=== PATIENT | male | born 1965 | race Caucasian/White ===

== ENCOUNTER 2018-07-12 16:44 | Observation (INO) | payer OTHER ==
[~2018-07-12] VITALS: Ht 180.3 cm; Wt 115.7 kg
[2018-07-12 17:27] LABS: BASOPHILS ABSOLUTE AUTO 0.02 K/mm3 (0.00-0.23); BASOPHILS PERCENT AUTO 0 % (0-2); EOSINOPHILS ABSOLUTE AUTO 0.08 K/mm3 (0.00-0.68); EOSINOPHILS PERCENT AUTO 1 % (0-6); Hematocrit 40.4 % (37.0-53.0); Hemoglobin 13.6 g/dL (13.5-17.5); IMMATURE GRAN ABSOLUTE AUTO 0.02 K/mm3 (0.00-0.10); IMMATURE GRAN PERCENT AUTO 0 % (0-1); LYMPHOCYTES ABSOLUTE AUTO 1.63 K/mm3 (0.84-5.20); LYMPHOCYTES PERCENT AUTO 20 % (21-46); MONOCYTES ABSOLUTE AUTO 0.37 K/mm3 (0.16-1.47); MONOCYTES PERCENT AUTO 5 % (4-13); Mean Corpuscular HGB 31.5 pg (26.0-34.0); Mean Corpuscular HGB Conc 33.7 g/dL (31.5-36.5); Mean Corpuscular Volume 94 fL (80-100); Mean Platelet Volume 10.4 fL (9.1-12.4); NEUTROPHILS ABSOLUTE AUTO 5.92 K/mm3 (1.96-9.15); NEUTROPHILS PERCENT AUTO 74 % (41-73); Platelet Count 253 K/mm3 (150-400); RDW Coefficient Variation 13.6 % (11.7-14.2); RDW Standard Deviation 46.8 fL (35.1-46.3); Red Blood Cell Count 4.32 M/mm3 (4.30-5.90); White Blood Cell Count 8.04 K/mm3 (4.00-11.30)
[2018-07-12 17:49] LABS: Albumin, Blood 4.7 g/dL (3.4-5.0); Albumin/Globulin Ratio 1.5 (0.8-1.8); Bilirubin, Total 0.6 mg/dL (0.1-1.0); Bun/Creatinine Ratio 15.9 (12.0-20.0); Calcium, Blood 8.8 mg/dL (8.5-10.1); Creatinine, Blood 1.76 mg/dL (0.60-1.20); Globulin, Blood 3.1 g/dL (2.2-4.0); Total Protein, Blood 7.8 g/dL (6.4-8.2)
[2018-07-12 20:49] LABS: Source, Urine Clean Catch
[2018-07-12 20:53] LABS: Appearance, Urine Clear (Clear); Bilirubin, Urine Neg (Neg); Blood, Urine 3+ (Neg); Color, Urine Yellow (P-Yellow); Glucose Qualitative, Urine Neg (Neg); Ketones, Urine 1+ (Neg); Leukocyte Esterase, Urine Neg (Neg); Nitrite, Urine Neg (Neg); Protein, Urine 3+ (Neg); Specific Gravity, Urine 1.025 (1.003-1.022); Urobilinogen, Urine NORM (Normal)
[2018-07-12 20:59] LABS: White Blood Cells, Urine 0-2 /hpf (0-5)
[2018-07-12 21:00] LABS: Bacteria Not Seen /hpf; Squamous Epithelial Cells Not Seen /hpf (Few)
[2018-07-12] MEDS ORDERED: LISI20 PO (21:58)
[2018-07-12] MEDS ORDERED: **INCOMPLETE MED REC (22:48)
[2018-07-12] MEDS ORDERED: ZESTRIL40 MG PO (22:51)
[2018-07-12] MEDS ORDERED: PRED1 PO (22:52)
[2018-07-12] MEDS ORDERED: ZOLP10 PO (22:52)
[2018-07-13 05:27] LABS: Creatinine, Blood 1.93 mg/dL (0.60-1.20)
== END 2018-07-13 13:31 | disposition home or self-care (01) ==
LOC: ER 16:44 → MEDS 16:45
PROVIDERS: Nurse Practitioner Acute Care; Physician Assistant; ADMIT Internal Medicine
DX: N13.2 Hydronephrosis with renal and ureteral calculous obstruction (principal); N17.9 Acute kidney failure, unspecified; G56.00 Carpal tunnel syndrome, unspecified upper limb; I10 Essential (primary) hypertension; E78.5 Hyperlipidemia, unspecified; Z79.899 Other long term (current) drug therapy; Z79.52 Long term (current) use of systemic steroids
CPT/HCPCS: 36415; 74176; 80048; 80053; 81001; 83690; 85025; 96361; 96374; 96375; 99285-25; G0378; J1170; J1885; J2405; J7030

== ENCOUNTER 2020-05-14 07:55 | Day surgery (SDC) | payer BC ==
[~2020-05-14] VITALS: Ht 180.3 cm; Wt 111.8 kg
[~2020-05-14 07:55] MED LIST: **INCOMPLETE MED REC; FENO145 PO; LISI20 PO; OMEP20ER PO; PRED1 PO; ZESTRIL40 MG PO; ZOLP10 PO
--- NOTE | 2020-05-14 08:49 | NUR ---
05/14/20 0849 Lyndsay Justin CALL LIGHT WITHIN REACH
== END 2020-05-14 09:50 | disposition home or self-care (01) ==
LOC: ORSCSDS 07:55
PROVIDERS: Surgery
PROC: 0DJD8ZZ Inspection of Lower Intestinal Tract, Via Natural or Artificial Opening Endoscopic (ICD-10-PCS; principal; 2020-05-14 09:00)
DX: Z12.11 Encounter for screening for malignant neoplasm of colon (principal); Z86.010 Personal history of colon polyps; I10 Essential (primary) hypertension; E78.5 Hyperlipidemia, unspecified; Z79.899 Other long term (current) drug therapy
CPT/HCPCS: J0330; J0461; J2250; J2405; J2704; J7120

== ENCOUNTER → 2021-06-23 | Outpatient (CLI) | payer BC | END | disposition home or self-care (01) | LOC: LAB SHORT 11:03 | DX: C44.311 Basal cell carcinoma of skin of nose (principal) | CPT/HCPCS: 88305 ==

== ENCOUNTER → 2023-06-01 | Outpatient (CLI) | payer BC | LOC: LAB 08:33 → LAB SHORT 08:33 | DX: C76.0 Malignant neoplasm of head, face and neck (principal) | CPT/HCPCS: 88305; 88341; 88342 ==

== ENCOUNTER 2023-09-02 06:12 | Day surgery (SDC) | payer BC ==
[2023-09-02] VITALS (14 sets, daily range): BP systolic 97–156; BP diastolic 62–98
[~2023-09-02] VITALS: Ht 180.3 cm; Wt 98.7 kg
[~2023-09-02 06:12] MED LIST changes: +CALC.25 PO; +Calcium Carbon500 MG PO; +LEVSOD100 PO; +NEBI10 PO; +TAMS.4ER PO; +Vitamin D1000 UNI1 PO
[2023-09-02] MEDS ORDERED: CeFAZolin Sodium 2,000 MG in NS 100 ML IV SCH (06:15)
[2023-09-02] MEDS ORDERED: Lactated Ringer's 1,000 ML IV SCH ×2 (06:15→09:55)
[2023-09-02] MEDS ORDERED: MELATONIN5 M1 PO (06:28)
--- NOTE | 2023-09-02 06:42 | NUR ---
Ambulatory in Day Surgery Pre-Op teaching done. Pt verbalizes understanding. History, Chart, Medications and Allergies reviewed before start of procedure.
[2023-09-02] MEDS ORDERED: propofoL 20 ML IV ONE ×2 (06:57→08:04)
[2023-09-02] MEDS ORDERED: Lidocaine HCl 4% 5 ML SDA ONE (07:25)
[2023-09-02] MEDS ORDERED: Glycopyrrolate 0.2 MG/ML 5ML VIAL ONE (07:34)
[2023-09-02] MEDS ORDERED: propofoL 40 ML IV ONE (07:44)
--- NOTE | 2023-09-02 08:39 | NUR ---
09/02/23 0839 Jaron Duenas PT RECIEVED 4% LIDO ORAL SPRAY TO GARGLE PER DR. EVANS WELL GLYCOPYROLATE FOR INCREASED SECRETIONS. [address] CUADRA AND DR. EVANS. SEE MD DICTATION AND ANESTHESIA RECORDS
--- NOTE | 2023-09-02 08:42 | NUR ---
DR. CUADRA SPOKE WITH PT REGARDING ATTEMPTED PEG TUBE PLACEMENT. DR. CUADRA IMFORMED PT THAT DR. EDMONDSON WILL PLACE PEG TUBE TODAY. CONTINUE TO MONITOR PT UNTIL DC FROM SURGERY.
--- NOTE | 2023-09-02 09:49 | NUR ---
DR CUADRA CAME BY TO SEE PATIENT. WILL ADMIT AN EXTENDED STAY FOR PEG TUBE PLACEMENT DONE THIS LATE AFTERNOON. VSS. AWAIT FOR ROOM ASSISGNMENT.
[2023-09-02] MEDS ORDERED: Acetaminophen 325 MG TABLET PO PRN (09:55)
[2023-09-02] MEDS ORDERED: LORazepam 2 MG/ML 1ML Injection IV PRN (10:05)
[2023-09-02] MEDS ORDERED: FentaNYL Citrate 50 MCG/ML 2 ML Injection IV PRN (10:05)
[2023-09-02] MEDS ORDERED: LORazepam 2 MG/ML 1ML Injection ONE (10:16)
--- NOTE | 2023-09-02 10:22 | NUR ---
MEDICATED FOR PAIN AND ANXIETY PER ORDERS. RECIEVED ROOM ASSIGNMENT TO 210. WILL CALL AND GIVE REPORT.
--- NOTE | 2023-09-02 10:39 | NUR ---
REPORT CALLED TO Nolberto FRANKLIN RN. TRANSFER PT VIA [facility] TO ROOM 210.
--- NOTE | 2023-09-02 11:19 | NUR ---
PT ARRIVED TO THE ROOM AT APPROXIMATELY 1055. PT IS ALERT AND ORIENTED. HE WAS ABLE TO TRANSFER FROM THE GURNEY TO THE BED INDEPENDENTLY. CALL LIGHT PLACED WITHIN REACH, PT EDUCATED TO USE. FAMILY AT THE BEDSIDE.
--- NOTE | 2023-09-02 11:40 | NUR ---
Patient is lying in bed and alert. Spouse, Ngoc is bedside. They tell me about the patient's medical history with cancer, the current medical situation and the plans for a procedure soon (then d/c home). We talk about the mental, emotional and spiritual parts of the henry while going through chemotherapy and radiation and ways to frame the events and ways to maintain sandra and keep hope alive. I normalize their experience and provide therapeutic listening, anxiety containment, theological insights and prayer. Both the patient and Ngoc showed signs of increased hope. I remain available.
[2023-09-02] MEDS ORDERED: Lidocaine 2% Jelly Uro-Jet ONE (14:59)
--- NOTE | 2023-09-02 15:16 | NUR ---
PT TAKEN FOR CT GUIDED PLACEMENT OF J-TUBE.
[2023-09-02] MEDS ORDERED: Acetaminophen 160MG / 5ML 10.15 UDC PO PRN (17:35)
--- NOTE | 2023-09-02 20:18 | NUR ---
PT PROVIDED WITH WRITTEN AND VERBAL DISCHARGE INSTRUCTIONS. PT TOLERATED PO AFTER G-TUBE PLACEMENT. PT IS AWARE OF NEED FOR FOLLOW-UP TOMORROW AT [facility]. VSS PRIOR TO DISCHARGE. PT AMBULATED OUT INDEPENDENTLY AT 1956.
== END 2023-09-02 19:57 | disposition home or self-care (01) ==
LOC: ORSCMMR 06:12 → ORD 06:12 → ORSCMMR 06:13 → ORD 07:30 → SURS 10:44 → ORD 19:57
PROVIDERS: Surgery
PROC: 0DJ08ZZ Inspection of Upper Intestinal Tract, Via Natural or Artificial Opening Endoscopic (ICD-10-PCS; principal; 2023-09-02 07:30)
DX: C73 Malignant neoplasm of thyroid gland (principal); G47.33 Obstructive sleep apnea (adult) (pediatric); I10 Essential (primary) hypertension; K21.9 Gastro-esophageal reflux disease without esophagitis; Z79.899 Other long term (current) drug therapy
CPT/HCPCS: 49440; 99152; 99153; A9270; J0690; J2001; J2060; J2704; J3010; J7120; Q9967

== ENCOUNTER 2023-09-02 08:53 | Day surgery (SDC) | payer BC ==
[2023-09-02] VITALS (7 sets, daily range): BP systolic 130–156; BP diastolic 78–98
[~2023-09-02 08:53] MED LIST changes: +MELATONIN5 M1 PO
[2023-09-02] MEDS ORDERED: FentaNYL Citrate 50 MCG/ML 2 ML Injection ONE ×2 (15:19→15:44)
[2023-09-02] MEDS ORDERED: Midazolam HCl 1MG / ML 2ML Vial ONE ×2 (15:20→15:44)
[2023-09-02] MEDS ORDERED: NS 1,000 ML IV ONE (15:20)
== END 2023-09-04 23:03 | disposition home or self-care (01) ==
LOC: SDS 08:53 → MHTC 08:53 → SDS 09-04 23:03
DX: T66.XXXA Radiation sickness, unspecified, initial encounter (principal); J39.2 Other diseases of pharynx; Y84.2 Radiological procedure and radiotherapy as the cause of abnormal reaction of the patient, or of later complication, without mention of misadventure at the time of the procedure
CPT/HCPCS: C1769; C1887; J2250; J3010; J7030

== ENCOUNTER 2023-10-08 05:03 | Day surgery (SDC) | payer BC ==
[2023-10-08 16:10] VITALS: BP 124/81
== END 2023-10-08 17:19 | disposition home or self-care (01) ==
LOC: ATC 05:03
DX: C73 Malignant neoplasm of thyroid gland (principal); G47.33 Obstructive sleep apnea (adult) (pediatric); K21.9 Gastro-esophageal reflux disease without esophagitis; I10 Essential (primary) hypertension; E78.5 Hyperlipidemia, unspecified; Z88.8 Allergy status to other drugs, medicaments and biological substances; Z79.899 Other long term (current) drug therapy

== ENCOUNTER → 2024-05-17 | Outpatient (CLI) | payer BC ==
[2024-05-17 11:09] LABS: IMMATURE RETIC FRACTION 29.1 % (2.3-16.0); RETIC HGB EQUIVALENT 37.1 pg (28.20-36.60); RETICULOCYTE ABSOLUTE 0.046 M/mm3 (0.0200-0.1100); RETICULOCYTE COUNT PERCENT 1.95 % (0.50-2.50)
[2024-05-17 11:44] LABS: Percent Saturation 32.3 % (20.0-50.0)
[2024-05-18 20:42] LABS: ERYTHROPOIETIN 727 mU/mL (4-27)
== END ==
LOC: LAB SHORT 10:11 → LAB 10:11
PROVIDERS: Internal Medicine Hematology & Oncology
DX: C73 Malignant neoplasm of thyroid gland (principal)
CPT/HCPCS: 82306; 82607; 82668; 82728; 82746; 83540; 83550; 83615; 85045

== ENCOUNTER → 2024-11-13 | Outpatient (CLI) | payer BC | END | disposition home or self-care (01) | LOC: LAB 14:15 → LAB SHORT 14:15 | DX: L08.0 Pyoderma (principal) | CPT/HCPCS: 87102; 87106 ==